=== PATIENT | male | born 1960 | race Caucasian/White ===

== ENCOUNTER 2017-12-12 10:31 | Day surgery (SDC) | payer OTHER ==
[~2017-12-12] VITALS: Ht 185.4 cm; Wt 95.3 kg
--- NOTE | ~2017-12-12 | OP ---
PATIENT NAME: ROSE MOREAU MEDICAL RECORD: [id number] :62 LOCATION:[facility] ADMISSION DATE: SURGEON: MONAE GREEN MD DATE OF OPERATION: 12/12/2017 PROCEDURE: Colonoscopy with biopsy and polypectomy. REFERRING PHYSICIAN: Dr. Amarjit Gaona. INDICATIONS: Mr. Moreau is a pleasant 57-year-old gentleman who is referred for screening colonoscopy. He has not had any symptoms of nausea, vomiting, melena, hematochezia, change in bowel habits, or abnormal weight loss. He presents for outpatient screening colonoscopy. PREMEDICATIONS: Total IV anesthesia (propofol 400 mg). History of alcohol dependence. INSTRUMENT: Olympus video colonoscope pediatric. PROCEDURE AND FINDINGS: After receiving informed consent, Mr. Moreau was placed in left lateral decubitus position, sedated as per anesthesia. After achieving adequate level of sedation, digital rectal exam was performed that showed no external hemorrhoidal tags, fissures or fistulas, normal sphincter tone, no palpable rectal masses. Colonoscope was introduced per rectally and advanced to the cecum without difficulty. Cecum IC valve, and appendiceal orifice were identified. Within the cecum was a solitary one 0.75 cm shallow ulcer, no active bleeding and the edges of the ulcer were biopsied. Also, within the cecum was a diminutive 0.25 cm sessile polyp removed with hot biopsy forcep technique. The terminal ileum was intubated and distal small bowel mucosa was without erythema or ulcers. As the colonoscope was withdrawn, careful inspection was made of the posey of the colon. Overall, mucosa had normal vascular and fold pattern. In the descending colon was a 0.3 cm sessile polyp removed with hot biopsy forcep technique. Within the rectum was a 0.5 cm sessile polyp removed with hot biopsy forcep technique. Retroflexion in the rectum showed no significant internal hemorrhoids, no other ulcers were seen in the colon. A good prep was present. Mr. Moreau tolerated the procedure well, no immediate complications. Withdrawal time was 8 minutes. ASSESSMENT: 1. Cecal polyp status post polypectomy. 2. Cecal ulcer, status post biopsy. 3. Descending colon polyp status post polypectomy. 4. Rectal polyp, status post polypectomy. 5. Normal appearing terminal ileum. 6. Cecal ulcer, suspect secondary to nonsteroidal anti-inflammatory drugs. RECOMMENDATIONS: 1. Follow up histopathology. 2. Avoid nonsteroidal anti-inflammatory drugs. 3. Avoid aspirin for 14 days post polypectomy. 4. High fiber diet. 5. Surveillance colonoscopy in 3 years pending nature of polyp histopathology. TRANSINT:[id number] Voice Confirmation ID: [id number] DOCUMENT ID: [id number] OPERATIVE REPORT [id number] ROSE MOREAU TERRI MD at 1832 CC: AMARJIT GAONA MD [id number] DICTATION DATE: 12/12/17 1336 [employer] DEVELOPER: 12/12/17 1347 [facility] [place] 12/12/17 [id number] [place] [address]
[2017-12-12 10:59] LABS: HEMATOCRIT 41.8 % (42.0-54.0); HEMOGLOBIN 14.3 g/dL (13.5-17.5); MCH 31.9 pg (26.0-34.0); MCHC 34.2 g/dL (31.0-37.0); MCV 93.3 fL (80.0-100.0); MEAN PLATELET VOLUME 9.9 fL (7.4-10.4); RBC 4.48 10x6/uL (4.20-6.10); RDW 12.8 % (11.5-14.5); WBC 7.1 10x3/uL (4.8-10.8)
[2017-12-12 11:49] VITALS: BP 132/77; BMI 27.7
[2017-12-12 12:03] VITALS: BP 132/77; Ht 185.4 cm; Wt 95.3 kg
== END 2017-12-12 14:55 | disposition home or self-care (01) ==
LOC: D.OPS 10:31
PROVIDERS: Anesthesiology
DX: Z12.11 Encounter for screening for malignant neoplasm of colon (principal)